=== PATIENT | male | born 1985 | race Two or more races ===

== ENCOUNTER 2017-05-25 19:08 | Emergency (ER) | payer MEDICAID ==
[2017-05-25 19:22] VITALS: BP 122/84
[2017-05-25 19:55] LABS: Hematocrit 47 % (42-52); Hemoglobin 15.7 g/dl (14.0-18.0); Mean Corpuscular HGB Conc 34 g/dl (31-36); Mean Corpuscular Hemoglobin 31 pg (27-31); Mean Corpuscular Volume 92 fL (80-94); Mean Platelet Volume 8 um3 (7.4-10.4); Red Blood Count 5.13 10^6/ul (4.0-5.4); Red Cell Distribution Width 13 % (10.5-15); White Blood Count 7.3 10^3/ul (3.5-10.8)
[2017-05-25 19:56] LABS: Urine Bilirubin Negative (Negative); Urine Glucose Negative (Negative); Urine Nitrite Negative (Negative)
[2017-05-25 20:10] LABS: ALT 13 U/L (7-52); Acetaminophen < 15 mcg/mL; Albumin 4.2 g/dL (3.2-5.2); Alcohol < 10 mg/dL (<10); Alkaline Phosphatase 58 U/L (34-104); BUN/Creatinine Ratio 13.7 (8-20); Blood Urea Nitrogen 20 mg/dL (6-24); CO2 Carbon Dioxide 30 mmol/L (22-32); Calcium 9.2 mg/dL (8.6-10.3); Chloride 102 mmol/L (101-111); EGFR African American 72.9 (>60); EGFR Non-African American 56.7 (>60); Globulin 2.5 g/dL (2-4); Glucose 87 mg/dL (70-100); Salicylate < 2.50 mg/dL (<30); Sodium 138 mmol/L (133-145); Total Protein 6.7 g/dL (6.4-8.9)
[2017-05-25 20:12] LABS: Benzodiazepine Urine Screen None Detected (None Detect)
[2017-05-25 20:27] LABS: TSH (Thyroid Stimulating Horm) 5.53 mcIU/mL (0.34-5.60)
[2017-05-25 20:45] LABS: AST 19 U/L (13-39); Anion Gap 6 mmol/L (2-11); Potassium 4.2 mmol/L (3.5-5.0)
--- NOTE | 2017-05-26 06:53 | ED ---
Aminata Villanueva Alfonso, scribed for Mor Alva MD on 05/25/17 at 2006 . Psychiatric Complaint - HPI Summary HPI Summary: LEVEL 5 CAVEAT DUE TO NONVERBAL STATUS. This patient is a 32 year old M brought in by police to [facility] for assaulting staff members at the [facility] and destroying property earlier today. The patient denies pain by nodding his head no. - History Of Current Complaint Chief Complaint: EDMentalHealth Time Seen by Provider: 05/25/17 19:34 Hx Obtained From: Patient Onset/Duration: Sudden Onset, Lasting Hours, Resolved Timing: Constant Severity Currently: None Associated Signs And Symptoms: Positive: Hostile - Earlier today per assaulting staff members at the [facility] and destroying property - Allergies/Home Medications Allergies/Adverse Reactions: Allergies Allergy/AdvReac Type Severity Reaction Status Date / Time No Known Allergies Allergy Verified 05/25/17 19:22 PMH/Surg Hx/FS Hx/Imm Hx Endocrine/Hematology History: Denies: Hx Anticoagulant Therapy, Hx Diabetes, Hx Systemic Lupus Erythematosus, Hx Thyroid Disease Cardiovascular History: Denies: Hx Congestive Heart Failure, Hx Hypertension, Hx Pacemaker/ICD Respiratory History: Reports: Hx Asthma Denies: Hx Chronic Obstructive Pulmonary Disease (COPD) GI History: Denies: Hx Ulcer History: Denies: Hx Dialysis, Hx Renal Disease Musculoskeletal History: Denies: Hx Rheumatoid Arthritis Neurological History: Reports: Other Neuro Impairments/Disorders - autistic Denies: Hx Dementia, Hx Seizures Psychiatric History: Denies: Hx Substance Abuse - Cancer History Hx Chemotherapy: No Infectious Disease History: No Infectious Disease History: Denies: Hx Clostridium Difficile, Hx Hepatitis, Hx Human Immunodeficiency Virus (HIV), Hx of Known/Suspected MRSA, Hx Shingles, Hx Tuberculosis, Hx Known/ Suspected VRE, Hx Known/Suspected VRSA, History Other Infectious Disease, Traveled Outside the [place] in Last 30 Days - Family History Known Family History: Positive: Unknown - DUE TO NONVERBAL STATUS - Social History Alcohol Use: None Substance Use Type: Reports: None Smoking Status (MU): Never Smoked Tobacco Review of Systems - ROS Summary Review of Systems Summary: LEVEL 5 CAVEAT DUE TO NONVERBAL STATUS. Negative: Fever Positive: Other - negative pain Neurological: Other - assaulting staff members at the [facility] and destroying property earlier today All Other Systems Reviewed And Are Negative: No Physical Exam - Summary Physical Exam Summary: VITAL SIGNS: Reviewed. GENERAL: Patient is a well-developed and nourished male who is pleasant, nonviolent, and lying comfortable in the stretcher. Patient is not in any acute respiratory distress. HEAD AND FACE: No signs of trauma. No ecchymosis, hematomas or skull depressions. No sinus tenderness. EYES: PERRLA, EOMI x 2, No injected conjunctiva, no nystagmus. EARS: Hearing grossly intact. Ear canals and tympanic membranes are within normal limits. MOUTH: Oropharynx within normal limits. NECK: Supple, trachea is midline, no adenopathy, no JVD, no carotid bruit, no c- spine tenderness, neck with full ROM. CHEST: Symmetric, no tenderness at palpation LUNGS: Clear to auscultation bilaterally. No wheezing or crackles. CVS: Regular rate and rhythm, S1 and S2 present, no murmurs or gallops appreciated. ABDOMEN: Soft, non-tender. No signs of distention. No rebound no guarding, and no masses palpated. Bowel sounds are normal. EXTREMITIES: FROM in all major joints, no edema, no cyanosis or clubbing. NEURO: Nonverbal and mentally challenged. No acute neurological deficits. SKIN: Dry and warm Triage Information Reviewed: Yes Vital Signs On Initial Exam: Initial Vitals Temp Pulse Resp BP Pulse Ox 98.6 F 97 16 122/84 97 05/25/17 19:16 05/25/17 19:16 05/25/17 19:16 05/25/17 19:16 05/25/17 19:16 Vital Signs Reviewed: Yes Completion Of Physical Exam Limited Due To: Level 5 Diagnostics - Vital Signs Vital Signs Temp Pulse Resp BP Pulse Ox 05/25/17 19:16 98.6 F 97 16 122/84 97 - Laboratory Lab Results: Lab Results 05/25/17 Range/Units 19:40 Urine Color Yellow Urine Appearance Clear Urine pH 5.0 (5-9) Ur Specific [place] 1.031 H (1.010-1.030) Urine Protein Negative (Negative) Urine Ketones Trace H (Negative) Urine Blood Negative (Negative) Urine Nitrate Negative (Negative) Urine Bilirubin Negative (Negative) Urine Urobilinogen Positive H (Negative) Ur Leukocyte Esterase Negative (Negative) Urine Glucose Negative (Negative) Urine Ascorbic Acid * H (Negative) Result Diagrams: 05/25/17 19:40 05/25/17 19:40 Lab Statement: Any lab studies that have been ordered have been reviewed, and results considered in the medical decision making process. Course/Dx - Course Assessment/Plan: LEVEL 5 CAVEAT DUE TO NONVERBAL STATUS. This patient is a 32 year old M brought in by police to [facility] for assaulting staff members at the [facility] and destroying property earlier today. The patient denies pain by nodding his head no. Test results with no significant abnormalities except for creatinine of 1.46. The patient is awaiting a MHE evaluation. The patient is comfortable and hemodynamically stable. After MHE evaluation, the patient was deemed by psychologist stable for discharge to [facility]. - Differential Dx/Clinical Impression Differential Diagnosis/HQI/PQRI: Positive: Anxiety, Depression Provider Diagnosis: developmental delay unspecified Discharge - Discharge Plan Condition: Stable Disposition: HOME Referrals: Yesenia Tidwell MD [Primary Care Provider] - Additional Instructions: Per completion of a mental health evaluation, you are cleared for release to the care of staff at your [facility] and do not require inpatient psychiatric hospitalization at this time. Please go to nearest emergency room or call 911 if safety concerns arise or condition worsens. IMPORTANT PHONE NUMBERS: [facility] Behavioral Services Unit: [facility] Emergency Room Flex Unit: [facility]: [facility] Police:~ [facility] Sheriff: [place] [employer]: OUTPATIENT SERVICES You have been referred to [facility] for continuation of your mental health services . If you require further assistance connecting to outpatient providers, please contact our Mental Health Unit at . No changes or adjustments were made to your medication regimen during this evaluation. Continue medications as prescribed by your outpatient providers. The documentation as recorded by the Aminata bowers Alfonso accurately reflects the service I personally performed and the decisions made by , Mor Alva MD.
== END 2017-05-25 22:56 | disposition home or self-care (01) ==
LOC: ED 19:08
DX: R62.50 Unspecified lack of expected normal physiological development in childhood (principal)
CPT/HCPCS: 36415; 80053; 80307; 80320; 80329; 81003; 84443; 85025; 99285; G0480

== ENCOUNTER 2017-10-22 15:45 | Emergency (ER) | payer MEDICAID ==
[2017-10-22 16:02] VITALS: BP 132/88
[2017-10-22] MEDS ORDERED: Tetanus-Diptheria Toxoids* 0.5 ML SYRINGE IM ONE (16:19)
--- NOTE | 2017-10-22 16:23 | UC ---
Head Injury HPI - HPI Summary HPI Summary: 32 year old male developmental delay/anxiety/behavior control problems here after he banged his head against the wall. Patient only nods yes and no but unable to elaborate. As per care takers, patient had no LOC. Tetanus in 2009. 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 Hx From Patient Unobtainable Due To: Other - mental disorder, anxiety Onset/Duration: Gradual Onset Pain Intensity: 3 Aggravating Factor(s): Unknown Alleviating Factor(s): Unknown - Allergies/Home Medications Allergies/Adverse Reactions: Allergies Allergy/AdvReac Type Severity Reaction Status Date / Time No Known Allergies Allergy Verified 05/25/17 19:22 Home Medications: Home Medications Acetaminophen TAB* [Tylenol TAB*] 975 mg PO Q6H PRN 10/22/17 [History Confirmed 10/22/17] PMH/Surg Hx/FS Hx/Imm Hx Previously Healthy: No Psychological History: Anxiety, Other - developmental delay Aggressive behavior Other Psychological History: developmental delay Other History Of: Negative For: Anticoagulant Therapy - Surgical History Surgical History: None - Family History Known Family History: Positive: Unknown - DUE TO NONVERBAL STATUS - Social History Alcohol Use: None Substance Use Type: None Smoking Status (MU): Never Smoked Tobacco Review of Systems Constitutional: Negative, Chills Skin: Bruising Psychological: Anxious - Unable to Is Patient Immunocompromised?: No All Other Systems Reviewed And Are Negative: No - Comments Additional Review of Systems Comments: Unable to review all systems due to his chronic condition. Physical Exam Triage Information Reviewed: Yes Completion Of Physical Exam Limited Due To: Patient is uncooperative with exam Appearance: No Pain Distress, Well-Nourished Vital Signs: Initial Vital Signs Temp 37.0 C 10/22/17 15:53 Pulse 85 10/22/17 15:53 Resp 16 10/22/17 15:53 BP 132/88 10/22/17 15:53 Pulse Ox 100 10/22/17 15:53 Eye Exam: Normal Eyes: Positive: Conjunctiva Clear ENT: Positive: Normal ENT inspection, Other - Scalp hematoma Neck: Positive: Nontender Respiratory: Positive: Chest non-tender Cardiovascular Exam: Normal Cardiovascular: Positive: RRR Abdominal Exam: Normal Abdomen Description: Positive: Nontender, No Organomegaly Neurological: Positive: Alert, Muscle Tone Normal Skin Exam: Normal Head Injury Course/Dx - Course Course Of Treatment: Head trauma. Normal neuro exam. Tdap uptodate. NCHCT. Most likely discharge - Differential Dx/Diagnosis Differential Diagnosis/HQI/PQRI: Concussion Without LOC, Contusion, Hematoma Provider Diagnoses: Head trauma. Negative CT Discharge - Discharge Plan Condition: Good Disposition: HOME Patient Education Materials: Concussion (ED) Referrals: Lyla Quan MD [Primary Care Provider] -
--- NOTE | 2017-10-22 16:57 | RAD ---
INDICATION: Intracranial injury COMPARISON: CT brain May 15, 2015 TECHNIQUE: Noncontrast axial source images were acquired from the skull base to the vertex. The examination is mildly limited due to motion artifact. Multiple images were repeated. FINDINGS: Ventricles/sulci: The ventricles and cisterns are normal in size and configuration for age. Brain parenchyma: There is no focal parenchymal finding, evidence of intracranial mass, or intracranial mass effect. Intracranial hemorrhage:None. Extra-axial spaces: There are no abnormal extra axial fluid collections or evidence of extra-axial mass. Calvarium: There is no calvarial fracture or other calvarial abnormality. Scalp: There is a left frontal scalp hematoma. Paranasal sinuses/mastoid: The paranasal sinuses and mastoid air cells are clear. Other: None. IMPRESSION: No acute intracranial findings. Left frontal scalp hematoma
== END 2017-10-22 17:19 | disposition home or self-care (01) ==
LOC: UCEAST 15:45
DX: S09.90XA Unspecified injury of head, initial encounter (principal); W22.01XA Walked into wall, initial encounter; Y93.9 Activity, unspecified; Y92.009 Unspecified place in unspecified non-institutional (private) residence as the place of occurrence of the external cause; R62.50 Unspecified lack of expected normal physiological development in childhood; F41.9 Anxiety disorder, unspecified; R46.89 Other symptoms and signs involving appearance and behavior
CPT/HCPCS: 70450; 99211; G0463